=== PATIENT | female | born 1950 | race African-American/Black ===

== ENCOUNTER 2023-09-01 09:38 | Inpatient (IN) | payer MEDICARE ==
[2023-09-01 11:25] LABS: Actual Bicarbonate (HCO3v) 20.3 mEq/L (22-28); Calcium, Ionized (venous) 1.13 mmol/L (1.16-1.32); Chloride (VBG) 111 mmol/L (98-106); Hematocrit-VBG 33 % (36.0-47.0); Hemoglobin (Hb) 11.3 g/dL (11.7-16.1); Sodium 141 mmol/L (133-146)
[2023-09-01 11:27] LABS: Potassium (VBG) 7.19 mmol/L (3.70-5.30)
[2023-09-01 11:35] LABS: #Eosinphils 0.1 thou/uL (0.0-0.7); #Monocytes 0.2 thou/uL (0.11-0.59); #Neutrophils 3.5 thou/uL (1.40-6.50); %Basophils 0.9 % (0.0-1.0); %Eosinophils 1.3 % (0.0-10.0); %Monocytes 5.3 % (0.0-10.0); %Neutrophils 77.3 % (42.0-75.0); Hematocrit 36.3 % (36.0-47.0); Hemoglobin 11.1 g/dL (12.0-16.0); Mean Corpuscular HGB CONC 30.6 g/dL (32.0-36.0); Mean Corpuscular Hemoglobin 27.6 pg (27.0-31.0); Mean Corpuscular Volume 90.3 fl (78.0-98.0); Mean Platelet Volume 10.3 fL (7.4-10.4); Platelet Count 210 10x3/uL (130-400); RBC Distribution Width 22.1 % (11.5-14.5); Red Blood Cell (RBC) Count 4.02 mill/uL (4.20-5.40); White Blood Cell (WBC) Count 4.5 10x3/uL (4.8-10.8)
[2023-09-01] MEDS ORDERED: Sodium Chloride 0.9% 100 ML ONE (11:46)
[2023-09-01] MEDS ORDERED: cefTRIAXone (ROCEPHIN) 2 GM VIAL ONE (11:46)
[2023-09-01 11:51] LABS: ALT (SGPT) 14 U/L (8-55); AST (SGOT) 31 U/L (5-34); Albumin 4.5 g/dL (3.4-4.8); Alkaline Phosphatase 143 U/L (40-110); Anion Gap 14 mmol/L (10-20); BUN (Urea Nitrogen) 36 mg/dL (9.8-20.1); Bilirubin, Total 1.7 mg/dL (0.2-1.2); Calc. Creatinine Clearance 0 mL/min (70-130); Calcium 9.8 mg/dL (7.8-10.44); Carbon Dioxide 23 mmol/L (23-31); Chloride 110 mmol/L (98-107); Estimated GFR 27; Globulin 3.9 g/dL (2.4-3.5); Glucose 75 mg/dL (83-110); Protein, Total 8.4 g/dL (5.8-8.1); Sodium 140 mmol/L (136-145)
[2023-09-01 11:54] LABS: Troponin I 0.041 ng/mL (< 0.028)
[2023-09-01 11:55] LABS: Potassium 6.5 mmol/L (3.5-5.1)
[2023-09-01] MEDS ORDERED: Ipratropium/Albuterol 3 ML NEB ONE (12:04)
[2023-09-01] MEDS ORDERED: Insulin Regular 300 UNITS/3 ML VIAL ONE (12:23)
[2023-09-01] MEDS ORDERED: Calcium Gluc 4.6 MEQ/10 ML (100 MG/ML) ONE (12:23)
[2023-09-01] MEDS ORDERED: Azithromycin 500 MG VIAL ONE (13:37)
[2023-09-01] MEDS ORDERED: Guaifenesin DM 100-10/5 ML UDCUP PO PRN (13:50)
[2023-09-01] MEDS ORDERED: Senokot S 8.6-50 MG TAB PO PRN (13:50)
[2023-09-01] MEDS ORDERED: Ondansetron PF 4 MG/2 ML Vial IVP PRN (13:50)
[2023-09-01] MEDS ORDERED: Aspirin Chewable 81 MG TAB ONE (14:56)
[2023-09-01 15:08] VITALS: BMI 26.6
[2023-09-01] MEDS ORDERED: Carvedilol 6.25 MG TAB ONE ×2 (16:40→16:42)
[2023-09-01] MEDS: Carvedilol 3.125 MG TAB PO SCH (17:04)
[2023-09-01 19:13] LABS: Anion Gap 16 mmol/L (10-20); BUN (Urea Nitrogen) 35 mg/dL (9.8-20.1); Calc. Creatinine Clearance 30 mL/min (70-130); Carbon Dioxide 14 mmol/L (23-31); Chloride 114 mmol/L (98-107); Estimated GFR 30; Sodium 137 mmol/L (136-145)
[2023-09-01 19:22] LABS: Glucose 59 mg/dL (83-110)
[2023-09-01 19:28] LABS: Potassium 6.3 mmol/L (3.5-5.1)
[2023-09-01] MEDS ORDERED: Sacubitril 24MG/Valsartan 26 MG TAB PO SCH (21:00)
[2023-09-02] MEDS ORDERED: Glucagon 1 MG/ML KIT IM PRN (02:15)
[2023-09-02] MEDS ORDERED: Dextrose 5% in Water 1,000 ML IV PRN (02:15)
[2023-09-02] MEDS ORDERED: Dextrose 50% Abboject 50 ML SYRINGE SLOW IVP PRN ×2 (02:15→03:53)
[2023-09-02 03:24] LABS: #Eosinphils 0.1 thou/uL (0.0-0.7); #Monocytes 0.4 thou/uL (0.11-0.59); #Neutrophils 2.9 thou/uL (1.40-6.50); %Basophils 0.7 % (0.0-1.0); %Eosinophils 2.4 % (0.0-10.0); %Lymphocytes 17.1 % (21.0-51.0); %Monocytes 9.9 % (0.0-10.0); %Neutrophils 69.7 % (42.0-75.0); Hematocrit 29.2 % (36.0-47.0); Hemoglobin 9.1 g/dL (12.0-16.0); Mean Corpuscular HGB CONC 31.2 g/dL (32.0-36.0); Mean Corpuscular Hemoglobin 28.3 pg (27.0-31.0); Mean Platelet Volume 11.4 fL (7.4-10.4); Platelet Count 175 10x3/uL (130-400); RBC Distribution Width 21.9 % (11.5-14.5); Red Blood Cell (RBC) Count 3.21 mill/uL (4.20-5.40); White Blood Cell (WBC) Count 4.2 10x3/uL (4.8-10.8)
[2023-09-02 03:46] LABS: ALT (SGPT) 14 U/L (8-55); AST (SGOT) 27 U/L (5-34); Albumin 3.6 g/dL (3.4-4.8); Alkaline Phosphatase 112 U/L (40-110); Anion Gap 14 mmol/L (10-20); BUN (Urea Nitrogen) 36 mg/dL (9.8-20.1); Bilirubin, Total 1.2 mg/dL (0.2-1.2); Calc. Creatinine Clearance 26 mL/min (70-130); Calcium 9.1 mg/dL (7.8-10.44); Carbon Dioxide 22 mmol/L (23-31); Chloride 113 mmol/L (98-107); Estimated GFR 25; Globulin 3.1 g/dL (2.4-3.5); Glucose 70 mg/dL (83-110); Protein, Total 6.7 g/dL (5.8-8.1); Sodium 143 mmol/L (136-145)
[2023-09-02 03:49] LABS: Potassium 6.4 mmol/L (3.5-5.1)
[2023-09-02] MEDS ORDERED: CALCIUM GLUC 1 GM/NS 50 ML 1 GM in Premix 1 BAG IVPB SCH (04:00)
[2023-09-02] MEDS ORDERED: Insulin Regular 300 UNITS/3 ML VIAL IVP SCH (04:00)
[2023-09-02] MEDS ORDERED: Sodium Bicarb 50 MEQ/50 ML VIAL IVP SCH (04:15)
[2023-09-02] MEDS ORDERED: Furosemide 40 MG/4 ML VIAL SLOW IVP SCH (04:15)
[2023-09-02] MEDS: Furosemide 20 MG/2 ML VIAL SLOW IVP SCH ×2 (04:24→14:07)
[2023-09-02] MEDS ORDERED: LOKELMA 10 GM PACKET PO SCH (04:30)
[2023-09-02] MEDS ORDERED: Escitalopram Oxalate 10 mg Tablet PO SCH (09:00)
[2023-09-02 09:19] LABS: Anion Gap 16 mmol/L (10-20); BUN (Urea Nitrogen) 36 mg/dL (9.8-20.1); Calc. Creatinine Clearance 26 mL/min (70-130); Calcium 8.9 mg/dL (7.8-10.44); Carbon Dioxide 21 mmol/L (23-31); Chloride 111 mmol/L (98-107); Estimated GFR 25; Glucose 116 mg/dL (83-110); Sodium 142 mmol/L (136-145)
[2023-09-02] MEDS: Carvedilol 3.125 MG TAB PO SCH (09:24)
[2023-09-02] MEDS: Empagliflozin 10 MG TAB PO SCH (09:24)
[2023-09-02] MEDS: cefTRIAXone\\ROCEPHIN 1 GM in Sodium Chloride 0.9% 100 ML IVPB SCH (12:31)
[2023-09-02] MEDS: Azithromycin 500 MG in Sodium Chloride 0.9% 250 ML 250 ML IVPB SCH (14:07)
[2023-09-02] MEDS: Acetaminophen 325 MG TAB PO PRN ×2 (14:08→20:58)
[2023-09-02 16:00] LABS: Anion Gap 14 mmol/L (10-20); BUN (Urea Nitrogen) 36 mg/dL (9.8-20.1); Calc. Creatinine Clearance 26 mL/min (70-130); Calcium 9.1 mg/dL (7.8-10.44); Carbon Dioxide 23 mmol/L (23-31); Chloride 111 mmol/L (98-107); Estimated GFR 25; Glucose 145 mg/dL (83-110); Potassium 5.8 mmol/L (3.5-5.1); Sodium 142 mmol/L (136-145)
[2023-09-02] MEDS: Carvedilol 25 MG TAB PO SCH (20:58)
[2023-09-03] MEDS: Furosemide 20 MG/2 ML VIAL SLOW IVP SCH (06:16)
[2023-09-03 07:40] LABS: Bacteria/HPF 4+ HPF (None Seen); Bilirubin Negative (Negative); Blood, Urine 2+ (Negative); CAUTI Indications for Culture Fever or rigors; Clarity Turbid (Clear); Glucose, Urine (Dipstick) 50 mg/dL (Negative); Ketone, Urine Negative (Negative); Leukocyte Negative Leu/uL (Negative); Nitrite Negative (Negative); Protein, Urine (Dipstick) Negative (Neg-Trace); RBC/HPF 0-3 HPF (0-3); Specific Gravity, Urine 1.011 (1.002-1.036); Squamous Epithelial 0-3 HPF (0-3); Urobilinogen Normal mg/dL (Less than 2)
[2023-09-03 07:42] LABS: Urine Culture Reflex No No
[2023-09-03 08:04] LABS: Legionella Urinary Ag Negative (Negative); Strep pneumo Urine Ag NEGATIVE (NEGATIVE)
[2023-09-03 09:22] LABS: Anion Gap 14 mmol/L (10-20); BUN (Urea Nitrogen) 37 mg/dL (9.8-20.1); Calc. Creatinine Clearance 26 mL/min (70-130); Calcium 9.2 mg/dL (7.8-10.44); Carbon Dioxide 23 mmol/L (23-31); Chloride 111 mmol/L (98-107); Estimated GFR 25; Glucose 71 mg/dL (83-110); Potassium 5.5 mmol/L (3.5-5.1); Sodium 142 mmol/L (136-145)
[2023-09-03] MEDS: Carvedilol 25 MG TAB PO SCH ×2 (10:20→20:49)
[2023-09-03] MEDS: Empagliflozin 10 MG TAB PO SCH (10:20)
[2023-09-03] MEDS: hydrALAZINE 25 MG TAB PO SCH (10:20)
[2023-09-03] MEDS: Sertraline 25 MG TAB PO SCH (10:20)
[2023-09-03] MEDS: cefTRIAXone\\ROCEPHIN 1 GM in Sodium Chloride 0.9% 100 ML IVPB SCH (12:54)
[2023-09-03] MEDS: Azithromycin 500 MG in Sodium Chloride 0.9% 250 ML 250 ML IVPB SCH (15:03)
[2023-09-04 04:03] LABS: #Eosinphils 0.1 thou/uL (0.0-0.7); #Monocytes 0.4 thou/uL (0.11-0.59); #Neutrophils 2.8 thou/uL (1.40-6.50); %Basophils 0.5 % (0.0-1.0); %Eosinophils 3.1 % (0.0-10.0); %Lymphocytes 15.2 % (21.0-51.0); %Monocytes 9.3 % (0.0-10.0); %Neutrophils 71.6 % (42.0-75.0); Hematocrit 28.3 % (36.0-47.0); Hemoglobin 8.6 g/dL (12.0-16.0); Mean Corpuscular HGB CONC 30.4 g/dL (32.0-36.0); Mean Corpuscular Hemoglobin 27.7 pg (27.0-31.0); Mean Corpuscular Volume 91.3 fl (78.0-98.0); Mean Platelet Volume 10.3 fL (7.4-10.4); Platelet Count 137 10x3/uL (130-400); RBC Distribution Width 21.5 % (11.5-14.5); White Blood Cell (WBC) Count 3.9 10x3/uL (4.8-10.8)
[2023-09-04 04:31] LABS: Anion Gap 12 mmol/L (10-20); BUN (Urea Nitrogen) 37 mg/dL (9.8-20.1); Calc. Creatinine Clearance 27 mL/min (70-130); Calcium 8.8 mg/dL (7.8-10.44); Carbon Dioxide 25 mmol/L (23-31); Chloride 109 mmol/L (98-107); Estimated GFR 26; Glucose 74 mg/dL (83-110); Potassium 5.6 mmol/L (3.5-5.1); Sodium 140 mmol/L (136-145)
[2023-09-04] MEDS: Carvedilol 25 MG TAB PO SCH ×2 (10:36→21:50)
[2023-09-04] MEDS: hydrALAZINE 25 MG TAB PO SCH (10:36)
[2023-09-04] MEDS: Empagliflozin 10 MG TAB PO SCH (10:36)
[2023-09-04] MEDS: Furosemide 20 MG/2 ML VIAL SLOW IVP SCH (10:37)
[2023-09-04] MEDS: Sertraline 25 MG TAB PO SCH (10:38)
[2023-09-04] MEDS ORDERED: Epoetin (ESRD) 10,000 UNITS/ML VIAL SC SCH (12:00)
[2023-09-04] MEDS: cefTRIAXone\\ROCEPHIN 1 GM in Sodium Chloride 0.9% 100 ML IVPB SCH (12:04)
[2023-09-04] MEDS: Azithromycin 500 MG in Sodium Chloride 0.9% 250 ML 250 ML IVPB SCH (14:34)
[2023-09-05 04:32] LABS: #Eosinphils 0.1 thou/uL (0.0-0.7); #Monocytes 0.4 thou/uL (0.11-0.59); #Neutrophils 2.7 thou/uL (1.40-6.50); %Basophils 0.8 % (0.0-1.0); %Eosinophils 2.7 % (0.0-10.0); %Lymphocytes 15.1 % (21.0-51.0); %Monocytes 9.7 % (0.0-10.0); %Neutrophils 71.4 % (42.0-75.0); Hematocrit 27.9 % (36.0-47.0); Hemoglobin 8.3 g/dL (12.0-16.0); Mean Corpuscular HGB CONC 29.7 g/dL (32.0-36.0); Mean Corpuscular Hemoglobin 27.6 pg (27.0-31.0); Mean Corpuscular Volume 92.7 fl (78.0-98.0); Mean Platelet Volume 11.2 fL (7.4-10.4); Platelet Count 142 10x3/uL (130-400); RBC Distribution Width 21.1 % (11.5-14.5); Red Blood Cell (RBC) Count 3.01 mill/uL (4.20-5.40); White Blood Cell (WBC) Count 3.7 10x3/uL (4.8-10.8)
[2023-09-05 05:19] LABS: Anion Gap 16 mmol/L (10-20); BUN (Urea Nitrogen) 38 mg/dL (9.8-20.1); Calc. Creatinine Clearance 26 mL/min (70-130); Calcium 8.4 mg/dL (7.8-10.44); Carbon Dioxide 20 mmol/L (23-31); Chloride 111 mmol/L (98-107); Estimated GFR 25; Glucose 60 mg/dL (83-110); Potassium 5.8 mmol/L (3.5-5.1); Sodium 141 mmol/L (136-145)
[2023-09-05] MEDS: Carvedilol 25 MG TAB PO SCH (09:47)
[2023-09-05] MEDS: hydrALAZINE 25 MG TAB PO SCH (09:47)
[2023-09-05] MEDS: Empagliflozin 10 MG TAB PO SCH (09:47)
[2023-09-05] MEDS: Sertraline 25 MG TAB PO SCH (09:47)
[2023-09-05] MEDS: Furosemide 20 MG/2 ML VIAL SLOW IVP SCH (09:47)
[2023-09-05] MEDS: Ferrous Sulfate 325 MG TAB PO SCH (09:47)
[2023-09-05] MEDS: cefTRIAXone\\ROCEPHIN 1 GM in Sodium Chloride 0.9% 100 ML IVPB SCH (12:14)
[2023-09-05] MEDS: Azithromycin 500 MG in Sodium Chloride 0.9% 250 ML 250 ML IVPB SCH (13:55)
[2023-09-06] MEDS: Carvedilol 25 MG TAB PO SCH ×3 (01:15→20:44)
[2023-09-06 04:10] LABS: #Eosinphils 0.2 thou/uL (0.0-0.7); #Monocytes 0.5 thou/uL (0.11-0.59); #Neutrophils 2.7 thou/uL (1.40-6.50); %Basophils 0.5 % (0.0-1.0); %Eosinophils 3.8 % (0.0-10.0); %Lymphocytes 15.9 % (21.0-51.0); %Monocytes 11.8 % (0.0-10.0); %Neutrophils 67.7 % (42.0-75.0); Hematocrit 29.1 % (36.0-47.0); Hemoglobin 8.9 g/dL (12.0-16.0); Mean Corpuscular HGB CONC 30.6 g/dL (32.0-36.0); Mean Corpuscular Hemoglobin 27.6 pg (27.0-31.0); Mean Corpuscular Volume 90.4 fl (78.0-98.0); Mean Platelet Volume 10.6 fL (7.4-10.4); Platelet Count 127 10x3/uL (130-400); RBC Distribution Width 21.4 % (11.5-14.5); Red Blood Cell (RBC) Count 3.22 mill/uL (4.20-5.40)
[2023-09-06 04:33] LABS: Anion Gap 13 mmol/L (10-20); BUN (Urea Nitrogen) 38 mg/dL (9.8-20.1); Calc. Creatinine Clearance 26 mL/min (70-130); Calcium 8.6 mg/dL (7.8-10.44); Carbon Dioxide 24 mmol/L (23-31); Chloride 111 mmol/L (98-107); Estimated GFR 25; Glucose 64 mg/dL (83-110); Sodium 143 mmol/L (136-145)
[2023-09-06 06:02] LABS: Anisocytosis SLIGHT = 6-15 cells HPF (0-5); CellaVision Operator ID LAB.JMM; Hypochromia MODERATE=16-30 cells HPF (0-5); Macrocytosis SLIGHT = 6-15 cells HPF (0-5); Platelet Adequacy Comment Platelets Decreased; Polychromasia SLIGHT = 2-3 cells HPF (0-2)
[2023-09-06] MEDS: Ferrous Sulfate 325 MG TAB PO SCH (08:16)
[2023-09-06] MEDS: hydrALAZINE 25 MG TAB PO SCH (08:16)
[2023-09-06] MEDS: Sertraline 25 MG TAB PO SCH (08:16)
[2023-09-06] MEDS: Empagliflozin 10 MG TAB PO SCH (08:16)
[2023-09-06] MEDS: cefTRIAXone\\ROCEPHIN 1 GM in Sodium Chloride 0.9% 100 ML IVPB SCH (11:53)
[2023-09-07 04:43] LABS: #Eosinphils 0.2 thou/uL (0.0-0.7); #Monocytes 0.4 thou/uL (0.11-0.59); #Neutrophils 2.7 thou/uL (1.40-6.50); %Basophils 0.5 % (0.0-1.0); %Eosinophils 3.8 % (0.0-10.0); %Lymphocytes 15.9 % (21.0-51.0); %Monocytes 10.9 % (0.0-10.0); %Neutrophils 68.6 % (42.0-75.0); Hematocrit 30.5 % (36.0-47.0); Hemoglobin 9.1 g/dL (12.0-16.0); Mean Corpuscular HGB CONC 29.8 g/dL (32.0-36.0); Mean Corpuscular Hemoglobin 28.1 pg (27.0-31.0); Mean Corpuscular Volume 94.1 fl (78.0-98.0); Mean Platelet Volume 11.8 fL (7.4-10.4); Platelet Count 138 10x3/uL (130-400); RBC Distribution Width 21.5 % (11.5-14.5); Red Blood Cell (RBC) Count 3.24 mill/uL (4.20-5.40)
[2023-09-07 05:04] LABS: Anion Gap 14 mmol/L (10-20); BUN (Urea Nitrogen) 34 mg/dL (9.8-20.1); Calc. Creatinine Clearance 29 mL/min (70-130); Calcium 8.9 mg/dL (7.8-10.44); Carbon Dioxide 22 mmol/L (23-31); Chloride 110 mmol/L (98-107); Estimated GFR 28; Glucose 70 mg/dL (83-110); Potassium 4.9 mmol/L (3.5-5.1); Sodium 141 mmol/L (136-145)
[2023-09-07] MEDS: hydrALAZINE 25 MG TAB PO SCH (09:19)
[2023-09-07] MEDS: Ferrous Sulfate 325 MG TAB PO SCH (09:19)
[2023-09-07] MEDS: Carvedilol 25 MG TAB PO SCH ×2 (09:20→20:02)
[2023-09-07] MEDS: Empagliflozin 10 MG TAB PO SCH (09:21)
[2023-09-07] MEDS: Sertraline 25 MG TAB PO SCH (09:22)
[2023-09-08 04:06] LABS: #Eosinphils 0.1 thou/uL (0.0-0.7); #Monocytes 0.4 thou/uL (0.11-0.59); #Neutrophils 3.1 thou/uL (1.40-6.50); %Basophils 0.5 % (0.0-1.0); %Eosinophils 2.9 % (0.0-10.0); %Lymphocytes 12.4 % (21.0-51.0); %Monocytes 9.5 % (0.0-10.0); %Neutrophils 74.5 % (42.0-75.0); Hematocrit 29.9 % (36.0-47.0); Hemoglobin 8.9 g/dL (12.0-16.0); Mean Corpuscular HGB CONC 29.8 g/dL (32.0-36.0); Mean Corpuscular Hemoglobin 27.2 pg (27.0-31.0); Mean Corpuscular Volume 91.4 fl (78.0-98.0); Mean Platelet Volume 11.4 fL (7.4-10.4); Platelet Count 144 10x3/uL (130-400); RBC Distribution Width 21.5 % (11.5-14.5); Red Blood Cell (RBC) Count 3.27 mill/uL (4.20-5.40); White Blood Cell (WBC) Count 4.2 10x3/uL (4.8-10.8)
[2023-09-08 04:33] LABS: Anion Gap 14 mmol/L (10-20); BUN (Urea Nitrogen) 35 mg/dL (9.8-20.1); Calc. Creatinine Clearance 30 mL/min (70-130); Calcium 9.1 mg/dL (7.8-10.44); Carbon Dioxide 23 mmol/L (23-31); Chloride 109 mmol/L (98-107); Estimated GFR 29; Glucose 88 mg/dL (83-110); Potassium 5.3 mmol/L (3.5-5.1); Sodium 141 mmol/L (136-145)
[2023-09-08] MEDS: Sertraline 25 MG TAB PO SCH (08:30)
[2023-09-08] MEDS: Empagliflozin 10 MG TAB PO SCH (08:31)
[2023-09-08] MEDS: hydrALAZINE 25 MG TAB PO SCH (08:31)
[2023-09-08] MEDS: Furosemide 40 MG TAB PO SCH (08:31)
[2023-09-08] MEDS: Carvedilol 25 MG TAB PO SCH ×2 (08:31→20:05)
[2023-09-08] MEDS: Ferrous Sulfate 325 MG TAB PO SCH (08:31)
[2023-09-08] MEDS: Acetaminophen 325 MG TAB PO PRN (16:19)
[2023-09-09] MEDS: Acetaminophen 325 MG TAB PO PRN ×2 (00:46→08:25)
[2023-09-09 05:26] LABS: Anion Gap 16 mmol/L (10-20); BUN (Urea Nitrogen) 36 mg/dL (9.8-20.1); Calc. Creatinine Clearance 26 mL/min (70-130); Calcium 8.8 mg/dL (7.8-10.44); Carbon Dioxide 22 mmol/L (23-31); Chloride 108 mmol/L (98-107); Estimated GFR 29; Glucose 91 mg/dL (83-110); Potassium 5.2 mmol/L (3.5-5.1); Sodium 141 mmol/L (136-145)
[2023-09-09] MEDS: Sertraline 25 MG TAB PO SCH (08:19)
[2023-09-09] MEDS: hydrALAZINE 25 MG TAB PO SCH (08:19)
[2023-09-09] MEDS: Empagliflozin 10 MG TAB PO SCH (08:19)
[2023-09-09] MEDS: Furosemide 40 MG TAB PO SCH (08:19)
[2023-09-09] MEDS: Ferrous Sulfate 325 MG TAB PO SCH (08:19)
[2023-09-09] MEDS: Carvedilol 25 MG TAB PO SCH (08:19)
[2023-09-09 15:25] VITALS: BP 124/62; TEMP 98.3
== END 2023-09-09 15:50 | DRG 193 ==
LOC: ERS 09:38 → EDBD 09:38 → ERHOLD 13:50 → 2NO 17:55
PROVIDERS: ADMIT Hospitalist; ATTEND Internal Medicine
DX: J18.9 Pneumonia, unspecified organism (principal); I21.A1 Myocardial infarction type 2; J96.21 Acute and chronic respiratory failure with hypoxia; N17.9 Acute kidney failure, unspecified; J44.0 Chronic obstructive pulmonary disease with (acute) lower respiratory infection; N18.4 Chronic kidney disease, stage 4 (severe); I50.42 Chronic combined systolic (congestive) and diastolic (congestive) heart failure; I13.0 Hypertensive heart and chronic kidney disease with heart failure and stage 1 through stage 4 chronic kidney disease, or unspecified chronic kidney disease; E87.5 Hyperkalemia; I48.91 Unspecified atrial fibrillation; E03.9 Hypothyroidism, unspecified; I25.10 Atherosclerotic heart disease of native coronary artery without angina pectoris; I25.5 Ischemic cardiomyopathy; E11.22 Type 2 diabetes mellitus with diabetic chronic kidney disease; I34.0 Nonrheumatic mitral (valve) insufficiency; E11.649 Type 2 diabetes mellitus with hypoglycemia without coma; D63.1 Anemia in chronic kidney disease; Z95.1 Presence of aortocoronary bypass graft; Z88.2 Allergy status to sulfonamides; Z99.81 Dependence on supplemental oxygen; Z95.810 Presence of automatic (implantable) cardiac defibrillator; Z90.710 Acquired absence of both cervix and uterus; Z87.891 Personal history of nicotine dependence
CPT/HCPCS: 36415; 36416; 71045; 80048; 80053; 81001; 82550; 82805; 83605; 83880; 84145; 84484; 85025; 85379; 87040; 87149; 87449; 87899; 93005; 93970; 94640; 94644; 94760; 96365; 96366; 96367; 96375; 97139; J0456; J0612; J0613; J0696; J1650; J1815; J1940; J3490; J7050; J7611; J7620; Q4081